=== PATIENT | female | born 1980 | race American Indian/Alaskan Native ===

== ENCOUNTER 2022-07-29 00:46 | Emergency (ER) | payer MEDICAID ==
[2022-07-29 03:15] LABS: Basophils # (Auto) 0.1 K/mm3 (0.0-0.1); Basophils % (Auto) 0.3 % (0.0-1.8); Eosinophils % (Auto) 0.3 % (0.0-4.3); Hematocrit 29.5 % (30.3-42.9); Hemoglobin 9.6 gm/dl (10.1-14.3); Lymphocytes # (Auto) 2.5 K/mm3 (1.2-5.4); Lymphocytes % (Auto) 15.5 % (13.4-35.0); Mean Corpuscular HGB Conc 33 % (30-34); Mean Corpuscular Volume 76 fl (79-97); Monocytes % (Auto) 6.1 % (0.0-7.3); Platelet Count 353 K/mm3 (140-440); Red Blood Count 3.87 M/mm3 (3.65-5.03)
[2022-07-29 03:19] LABS: Red Cell Distribution Width 21.6 % (13.2-15.2)
[2022-07-29 03:36] LABS: Alanine Aminotransferase 9 units/L (7-56); Albumin 3.9 g/dL (3.9-5); Blood Urea Nitrogen 8 mg/dL (7-17); Calcium 8.6 mg/dL (8.4-10.2); Hemolysis Index 1
[2022-07-29 03:39] LABS: BUN/Creatinine Ratio 11
--- NOTE | 2022-07-29 04:59 | Cat Scan Report ---
CT PELVIS WITH CONTRAST INDICATION / CLINICAL INFORMATION: gluteal abscess. TECHNIQUE: Axial CT images were obtained through the pelvis after 100 cc Omnipaque [address] scans at this location are performed using CT dose reduction for ALARA by means of automated ex posure control. COMPARISON: None available. FINDINGS: BOWEL: No significant abnormality. APPENDIX: Not seen. PERITONEUM: No free fluid. No free air. No fluid collection. LYMPH NODES: No significant adenopathy. ARTERIES: No significant abnormality. VEINS: No significant abnormality. URINARY BLADDER: No significant abnormality. REPRODUCTIVE ORGANS: No significant abnormality. ADDITIONAL FINDINGS: Marked inflammation is seen along the left gluteal subcutaneous tissues extendin g along the gluteal cleft without visualization of an organized drainable abscess or significant soft tissue gas. SKELETAL SYSTEM: No significant abnormality. IMPRESSION: Marked inflammation along the left gluteal subcutaneous tissues without visualization of an organized drainable fluid collection/abscess. Signer Name: Aman Brar MD Signed: 07/29/2022 4:54 AM Workstation Name: [id number]
--- NOTE | 2022-07-29 06:25 | Emergency Department Report ---
ED General Adult HPI - General Chief complaint: Urogenital-Female Stated complaint: SPIDER BITE Time Seen by Provider: 07/29/22 04:45 Source: patient Mode of arrival: Ambulatory Limitations: No Limitations - History of Present Illness Initial comments: Patient is a 42-year-old female who presents with an abscess to her left buttocks she states she thought was a "spider bite." Onset was 5 days ago and she went to [facility] the following day. Attempt at lancing was unsuccessful but they put placed her on Bactrim. The area has since worsened. Apparently the wound ruptured while she was in triage and nursing staff bandaged her. Location: buttocks, left Severity scale (0 -10): 6 Quality: burning Associated Symptoms: denies other symptoms. denies: diaphoresis, fever/chills, headaches, loss of appetite, malaise, nausea/vomiting, shortness of breath, syncope, weakness - Related Data Previous Rx's Medication Instructions Recorded Last Taken Type Ciprofloxacin HCl [Ciprofloxacin 750 mg PO BID #14 tab 07/29/22 Unknown Rx TAB] HYDROcodone/APAP 10-325 [[place] 1 each PO Q6HR PRN #12 tablet 07/29/22 Unknown Rx 10-325 mg TAB] Allergies Allergy/AdvReac Type Severity Reaction Status Date / Time No Known Allergies Allergy Unverified 07/29/22 02:30 ED Review of Systems ROS: Stated complaint: SPIDER BITE Other details as noted in HPI Comment: All other systems reviewed and negative Constitutional: denies: chills, fever Eyes: denies: vision change ENT: denies: throat pain, congestion Respiratory: denies: cough, shortness of breath Cardiovascular: denies: chest pain, palpitations, edema Endocrine: denies: intolerance to cold, intolerance to heat Gastrointestinal: denies: abdominal pain, nausea, vomiting, diarrhea Genitourinary: denies: urgency, dysuria, frequency Musculoskeletal: denies: back pain, myalgia Skin: rash. denies: as per HPI Neurological: denies: headache, weakness Psychiatric: denies: anxiety, depression Hematological/Lymphatic: denies: easy bleeding, easy bruising ED Past Medical Hx - Past Medical History Previous Medical History?: No - Surgical History Past Surgical History?: Yes Hx Appendectomy: Yes - Social History Smoking Status: Current Every Day Smoker Substance Use Type: None - Medications Home Medications: Home Medications Medication Instructions Recorded Confirmed Last Taken Type Ciprofloxacin HCl [Ciprofloxacin 750 mg PO BID #14 tab 07/29/22 Unknown Rx TAB] HYDROcodone/APAP 10-325 [[place] 1 each PO Q6HR PRN #12 tablet 07/29/22 Unknown Rx 10-325 mg TAB] ED Physical Exam - General Limitations: No Limitations General appearance: alert, in no apparent distress - Head Head exam: Present: atraumatic, normocephalic - Eye Eye exam: Absent: scleral icterus, conjunctival injection - Respiratory Respiratory exam: Present: normal lung sounds bilaterally. Absent: respiratory distress, wheezes - Cardiovascular Cardiovascular Exam: Present: regular rate, normal rhythm, normal heart sounds - GI/Abdominal GI/Abdominal exam: Present: soft. Absent: distended, tenderness - Extremities Exam Extremities exam: Present: normal inspection, full ROM - Neurological Exam Neurological exam: Present: alert, oriented X3 - Psychiatric Psychiatric exam: Present: normal affect, normal mood - Skin Skin exam: Present: warm, dry - Expanded Skin Exam Expanded Type of lesion: Present: abscess Distribution of rash: other (Left buttocks) Description of rash: Present: indurated, other (No fluctuance) ED Course Vital Signs 07/29/22 02:30 Temperature 98.8 F Pulse Rate 99 H Respiratory 18 Rate Blood Pressure 156/95 O2 Sat by Pulse 100 Oximetry - Reevaluation(s) Reevaluation #1: 07/29/22 07:10 CT revealed an organized inflammation without renal abscess. - I & D Left Buttocks Type of Procedure: Complex Site: Medial buttocks Blade Size: 11 I & D Procedure: betadine prep, sterile drapes applied, sterile dressing applied, gauze wick placed (Iodoform) Progress: Minimal drainage. Loculations freed. Patient tolerated procedure well and sterile dressing placed. Culture sent. ED Medical Decision Making - Lab Data Result diagrams: 07/29/22 03:03 07/29/22 03:03 - Radiology Data Radiology results: report reviewed [facility] [address] [place] [address] Cat Scan Report Signed Patient: DRU GABRIEL MR#: [id number] : 1980 Acct:[id number] Age/Sex: 42 / F ADM Date: 07/29/22 Loc: ED Attending Dr: Ordering Physician: GERMAN MOSES MD Date of Service: 07/29/22 Procedure(s): CT pelvis w con Accession Number(s): [id number] cc: GERMAN MOSES MD CT PELVIS WITH CONTRAST INDICATION / CLINICAL INFORMATION: gluteal abscess. TECHNIQUE: Axial CT images were obtained through the pelvis after 100 cc Omnipaque [address] scans at this location are performed using CT dose reduction for ALARA by means of automated exposure control. COMPARISON: None available. FINDINGS: BOWEL: No significant abnormality. APPENDIX: Not seen. PERITONEUM: No free fluid. No free air. No fluid collection. LYMPH NODES: No significant adenopathy. ARTERIES: No significant abnormality. VEINS: No significant abnormality. URINARY BLADDER: No significant abnormality. REPRODUCTIVE ORGANS: No significant abnormality. ADDITIONAL FINDINGS: Marked inflammation is seen along the left gluteal subcu taneous tissues extending along the gluteal cleft without visualization of an organized drainable abscess or significant soft tissue gas. SKELETAL SYSTEM: No significant abnormality. IMPRESSION: Marked inflammation along the left gluteal subcutaneous tissues without visualization of an organized drainable fluid collection/abscess. Signer Name: Aman Brar MD Signed: 07/29/2022 4:54 AM Workstation Name: [id number] Transcribed By: [place] Dictated By: Aman Brar MD Electronically Authenticated By: Aman Brar MD Signed Date/Time: 07/29/22453 DD/ 0 TD/TT: - Medical Decision Making Not improving with Bactrim alone so we will add Cipro. Surgery referral. Return here in 2 days for packing change. Critical care attestation.: If time is entered above; I have spent that time in minutes in the direct care of this critically ill patient, excluding procedure time. ED Disposition Clinical Impression: Abscess of buttock, left Disposition: 01 HOME / SELF CARE / HOMELESS Is pt being admited?: No Condition: Stable Instructions: Skin Abscess, Incision and Drainage, Care After Additional Instructions: Packing change here in 2 days. Cipro. Lortab. Continue Bactrim until finished. Surgery consult. Prescriptions: Ciprofloxacin HCl [Ciprofloxacin TAB] 750 mg PO BID #14 tab HYDROcodone/APAP 10-325 [[place] 10-325 mg TAB] 1 each PO Q6HR PRN #12 tablet PRN Reason: Pain , Severe (7-10) Referrals: AFIA MORALES MD [Staff Physician] - 3-5 Days Forms: Work/School Release Form(ED) Time of Disposition: 07:18
[2022-07-29] MEDS ORDERED: levoFLOXacin 750 MG TAB PO ONE (06:27)
[2022-07-29] MEDS ORDERED: HYDROcodone/ACETAMINOPHEN 10-325MG TAB PO ONE (07:13)
[2022-07-29 08:00] VITALS: BP 128/74
== END 2022-07-29 08:00 | disposition home or self-care (01) ==
LOC: ED 00:46
DX: L02.31 Cutaneous abscess of buttock (principal); F17.200 Nicotine dependence, unspecified, uncomplicated; Z98.890 Other specified postprocedural states; Z79.899 Other long term (current) drug therapy
CPT/HCPCS: 10060; 36415; 72193; 80053; 82140; 84703; 85025; 87040; 99284; Q9967

== ENCOUNTER 2022-07-31 13:36 | Emergency (ER) | payer MEDICAID ==
[2022-07-31 15:10] VITALS: BP 159/93
== END 2022-07-31 22:00 | disposition left against medical advice (07) ==
LOC: ED 13:36
DX: L02.91 Cutaneous abscess, unspecified (principal); Z53.21 Procedure and treatment not carried out due to patient leaving prior to being seen by health care provider